=== PATIENT | male | born 1970 | race Caucasian/White ===

== ENCOUNTER 2022-02-04 19:29 | Inpatient (IN) ==
[2022-02-04] MEDS ORDERED: SODIUM CHLORIDE 0.9% 2,000 ML IV STA (19:45)
[2022-02-04 20:18] LABS: Basophils # 0.1 10*3/uL (0.0-0.2); Basophils % 0.9 % (0.0-0.8); Eosinophils % 0.2 % (0.00-10.9); Hematocrit 44.2 VOL% (42.0-52.0); Hemoglobin 15.4 GM/DL (14.0-18.0); Immature Granulocytes % 1.9 %; Lymphocytes # 0.5 10*3/uL (1.4-4.0); Lymphocytes % 9.3 % (21.2-54.2); Mean Corpuscular HGB Conc 34.8 GM/DL (32-36); Mean Corpuscular Volume 95.5 FL (87-102); Mean Platelet Volume 13.9 FL (9.6-12.0); Monocytes # 0.1 10*3/uL (0.11-0.8); Monocytes % 1.9 % (1.7-12.7); Neutrophils % 85.8 % (38.7-73.9); Platelet Count 43 T/CUMM (130-400); Red Blood Count 4.63 MC/CUMM (3.8-5.5); Red Cell Distribution Width 13.7 % (9.3-17.3); White Blood Count 5.3 T/CUMM (4-12)
[2022-02-04 20:35] LABS: Albumin 2.7 G/DL (3.4-5.0); Bilirubin,Total 1.7 MG/DL (0.20-1.00); Calcium 7.5 MG/DL (8.5-10.1); Osmolality,Calculated 267.1 MOS/KG (273-304); Potassium 3.9 MMOL/L (3.5-5.1); Total Protein 5.5 G/DL (6.4-8.2)
[2022-02-04 20:45] LABS: Band Neutrophils 12 % (0-10); Lymphocytes 6 % (20-55); Total Cells Counted 100
[2022-02-04 20:56] LABS: Platelet Estimate Decreased
[2022-02-04] MEDS ORDERED: SODIUM CHLORIDE 0.9% 1,000 ML IV STA (21:31)
[2022-02-04] MEDS ORDERED: PIPERACILLIN/TAZOBACTAM 3,375 MG in SODIUM CHLORIDE 0.9% 100 ML IV STA (21:32)
[2022-02-04 22:02] LABS: Bilirubin,Urine Small mg/dL (Negative); Blood, Urine Small mg/dL (Negative); Glucose,Urine (UA) Negative (Negative); Ketones,Urine Trace mg/dL (Negative); Nitrite,Urine Negative (Negative); Protein,Urine 100 mg/dL (Negative); Urine Appearance Slightly Cloudy (Clear); Urine Color Dark Yellow (Yellow); Urine pH 5.5 (4.5-8.0)
[2022-02-04 22:24] LABS: Barbiturates Screen,Urine Negative (Negative); Benzodiazepines Screen,Urine Negative (Negative); Cannabinoid Screen,Urine Negative (Negative); Opiate Screen,Urine Negative (Negative); Phencyclidine Screen,Urine Negative (Negative)
[2022-02-05] MEDS ORDERED: GLUCAGON 1 MG VIAL IM PRN (00:33)
[2022-02-05] MEDS ORDERED: ONDANSETRON 4 MG/2 ML VIAL IV PRN (00:41)
[2022-02-05] MEDS ORDERED: hydrALAZINE 20 MG/1 ML VIAL IV PRN (00:41)
[2022-02-05] MEDS ORDERED: DEXTROSE 10% 250 ML BAG IV PRN (00:56)
[2022-02-05] MEDS ORDERED: MAGNESIUM SULF RIDER 2 GM/50 ML PREMIX IV PRN (01:50)
[2022-02-05] MEDS ORDERED: MAGNESIUM SULF RIDER 4 GM/100 ML PREMIX IV PRN (01:50)
[2022-02-05] MEDS: SODIUM CHLORIDE 0.9% 1,000 ML IV SCH ×2 (02:08→18:01)
[2022-02-05 02:17] LABS: Basophils % 0.5 % (0.0-0.8); Hematocrit 43.5 VOL% (42.0-52.0); Hemoglobin 15.1 GM/DL (14.0-18.0); Immature Granulocytes % 0.9 %; Immature Granulocytes Absolute 0.05 #; Lymphocytes # 0.6 10*3/uL (1.4-4.0); Mean Corpuscular HGB Conc 34.7 GM/DL (32-36); Mean Corpuscular Volume 96.2 FL (87-102); Monocytes # 0.1 10*3/uL (0.11-0.8); Monocytes % 2.5 % (1.7-12.7); Neutrophils % 86.1 % (38.7-73.9); Platelet Count 45 T/CUMM (130-400); Red Blood Count 4.52 MC/CUMM (3.8-5.5); Red Cell Distribution Width 13.8 % (9.3-17.3); White Blood Count 5.5 T/CUMM (4-12)
[2022-02-05 02:53] LABS: Albumin 2.4 G/DL (3.4-5.0); Bilirubin,Total 1.9 MG/DL (0.20-1.00); Osmolality,Calculated 267.8 MOS/KG (273-304)
[2022-02-05 02:58] LABS: Cholesterol < 50 MG/DL (50-200); HDL Cholesterol < 10 MG/DL (40-60); Triglycerides 162 MG/DL (2-150); VLDL Cholesterol 32.4 MG/DL
[2022-02-05 03:11] LABS: Band Neutrophils 5 % (0-10); Lymphocytes 8 % (20-55); Platelet Estimate Decreased; Total Cells Counted 100
[2022-02-05] MEDS ORDERED: ENOXAPARIN 40 MG/0.4 ML SYRINGE SUBCUT SCH (09:00)
[2022-02-05] MEDS: PANTOPRAZOLE 40 MG TABLET PO SCH (09:13)
[2022-02-05] MEDS ORDERED: PHENOL 1.4% THROAT SPRAY 177 ML BOTTLE PO PRN (11:14)
[2022-02-05] MEDS: cefTRIAXone 1,000 MG in SODIUM CHLORIDE 0.9% 100 ML IV SCH (12:19)
[2022-02-05] MEDS: AZITHROMYCIN INJ 500 MG in SODIUM CHLORIDE 0.9% 250 ML IV SCH (12:59)
[2022-02-05] MEDS: BUTALBITAL/ACETAMIN/CAFFEINE 50-325-40 MG TABLET PO PRN ×2 (12:59→21:46)
[2022-02-05] MEDS: ALBUTEROL/IPRATROPIUM 3 ML NEB RESP TX SCH ×2 (13:46→19:47)
[2022-02-05] MEDS: SODIUM BICARBONATE 650 MG TABLET PO SCH ×2 (15:49→21:46)
[2022-02-05] MEDS ORDERED: LORazepam 1 MG TABLET PO PRN (20:45)
[2022-02-05] MEDS ORDERED: NICOTINE 14 MG/24 HR PATCH TRANSDERM PRN (20:45)
[2022-02-05 20:56] LABS: Arterial Base Excess iSTAT -7 MMOL/L (-2.5-2.5); Arterial Bicarbonate iSTAT 15.9 MMOL/L (20-26); Arterial O2 Saturation iSTAT 88 % (95-100); Arterial PCO2 iSTAT 27 MM HG (35-48); Arterial PO2 iSTAT 54 MM HG (80-95); Arterial Total CO2 iSTAT 17 MMO/L (23-27); Arterial pH iSTAT 7.384 (7.35-7.45)
[2022-02-05] MEDS ORDERED: LORazepam 1 MG TABLET PO SCH (21:00)
[2022-02-06] MEDS: ALBUTEROL/IPRATROPIUM 3 ML NEB RESP TX SCH ×3 (00:50→14:40)
[2022-02-06 06:06] LABS: Basophils % 0.3 % (0.0-0.8); Eosinophils # 0.1 10*3/uL (0.0-0.87); Eosinophils % 1.4 % (0.00-10.9); Hematocrit 39.2 VOL% (42.0-52.0); Hemoglobin 13.7 GM/DL (14.0-18.0); Immature Granulocytes % 0.6 %; Immature Granulocytes Absolute 0.04 #; Lymphocytes # 1.1 10*3/uL (1.4-4.0); Lymphocytes % 17.9 % (21.2-54.2); Mean Corpuscular HGB Conc 34.9 GM/DL (32-36); Mean Corpuscular Volume 96.6 FL (87-102); Mean Platelet Volume 13.6 FL (9.6-12.0); Monocytes # 0.3 10*3/uL (0.11-0.8); Monocytes % 5.4 % (1.7-12.7); Neutrophils % 74.4 % (38.7-73.9); Platelet Count 46 T/CUMM (130-400); Red Blood Count 4.06 MC/CUMM (3.8-5.5); Red Cell Distribution Width 14.2 % (9.3-17.3); White Blood Count 6.3 T/CUMM (4-12)
[2022-02-06 06:29] LABS: Albumin 2.1 G/DL (3.4-5.0); Calcium 7.2 MG/DL (8.5-10.1); Osmolality,Calculated 269.2 MOS/KG (273-304); Potassium 3.7 MMOL/L (3.5-5.1); Total Protein 4.6 G/DL (6.4-8.2)
[2022-02-06 06:52] LABS: Eosinophils 1 % (0-10); Lymphocytes 8 % (20-55); Platelet Estimate Decreased; Total Cells Counted 100
[2022-02-06] MEDS: PANTOPRAZOLE 40 MG TABLET PO SCH (08:35)
[2022-02-06] MEDS: SODIUM BICARBONATE 650 MG TABLET PO SCH ×2 (08:35→21:56)
[2022-02-06] MEDS: THIAMINE IV SCH (09:17)
[2022-02-06] MEDS: FOLIC ACID IV SCH (09:17)
[2022-02-06] MEDS: [UNRECOGNIZED DRUG - OTHER] IV SCH (09:17)
[2022-02-06] MEDS: MULTIVITAMIN IV SCH (09:17)
[2022-02-06] MEDS: cefTRIAXone 1,000 MG in SODIUM CHLORIDE 0.9% 100 ML IV SCH (12:53)
[2022-02-06] MEDS: AZITHROMYCIN INJ 500 MG in SODIUM CHLORIDE 0.9% 250 ML IV SCH (13:47)
[2022-02-06] MEDS ORDERED: LEVALBUTEROL 1.25 MG/3 ML NEB RESP TX PRN (14:24)
[2022-02-06] MEDS: DEXAMETHASONE 4 MG/1 ML VIAL IV SCH (14:49)
[2022-02-06] MEDS: SODIUM CHLORIDE 0.9% 1,000 ML IV SCH ×4 (14:50→21:57)
[2022-02-06] MEDS: LEVALBUTEROL 1.25 MG/3 ML NEB RESP TX SCH (18:55)
[2022-02-06] MEDS: ASCORBIC ACID 500 MG TABLET PO SCH (21:56)
[2022-02-07 05:15] LABS: Basophils % 0.4 % (0.0-0.8); Eosinophils % 0.2 % (0.00-10.9); Hematocrit 41.6 VOL% (42.0-52.0); Hemoglobin 13.5 GM/DL (14.0-18.0); Immature Granulocytes % 0.6 %; Immature Granulocytes Absolute 0.03 #; Lymphocytes # 0.9 10*3/uL (1.4-4.0); Lymphocytes % 18.8 % (21.2-54.2); Mean Corpuscular HGB Conc 32.5 GM/DL (32-36); Mean Corpuscular Volume 102.7 FL (87-102); Mean Platelet Volume 13.5 FL (9.6-12.0); Monocytes # 0.3 10*3/uL (0.11-0.8); Monocytes % 5.6 % (1.7-12.7); Neutrophils % 74.4 % (38.7-73.9); Platelet Count 50 T/CUMM (130-400); Red Blood Count 4.05 MC/CUMM (3.8-5.5); Red Cell Distribution Width 14.7 % (9.3-17.3)
[2022-02-07 05:52] LABS: Platelet Estimate Decreased
[2022-02-07 06:19] LABS: Albumin 2.4 G/DL (3.4-5.0); Bilirubin,Total 0.9 MG/DL (0.20-1.00); Calcium 7.9 MG/DL (8.5-10.1); Osmolality,Calculated 281.5 MOS/KG (273-304); Potassium 5.3 MMOL/L (3.5-5.1); Total Protein 5.9 G/DL (6.4-8.2)
[2022-02-07] MEDS: LEVALBUTEROL 1.25 MG/3 ML NEB RESP TX SCH ×4 (07:21→20:00)
[2022-02-07] MEDS: SODIUM CHLORIDE 0.9% 1,000 ML IV SCH ×8 (08:49→16:36)
[2022-02-07] MEDS ORDERED: DEXAMETHASONE 4 MG/1 ML VIAL IV SCH (09:00)
[2022-02-07] MEDS: ZINC GLUCONATE 50 MG TABLET PO SCH (09:41)
[2022-02-07] MEDS: PANTOPRAZOLE 40 MG TABLET PO SCH (09:41)
[2022-02-07] MEDS: SODIUM BICARBONATE 650 MG TABLET PO SCH ×2 (09:41→20:50)
[2022-02-07] MEDS: DEXAMETHASONE 4 MG/1 ML VIAL IV SCH (09:41)
[2022-02-07] MEDS: CHOLECALCIFEROL 1,000 UNIT TABLET PO SCH (09:41)
[2022-02-07] MEDS: ASCORBIC ACID 500 MG TABLET PO SCH ×2 (09:41→20:50)
[2022-02-07] MEDS: CETIRIZINE 10 MG TABLET PO SCH (09:41)
[2022-02-07] MEDS: MULTIVITAMIN IV SCH (13:15)
[2022-02-07] MEDS: FOLIC ACID IV SCH (13:15)
[2022-02-07] MEDS: THIAMINE IV SCH (13:15)
[2022-02-07] MEDS: [UNRECOGNIZED DRUG - OTHER] IV SCH (13:15)
[2022-02-07] MEDS: cefTRIAXone 1,000 MG in SODIUM CHLORIDE 0.9% 100 ML IV SCH (13:58)
[2022-02-07] MEDS: AZITHROMYCIN INJ 500 MG in SODIUM CHLORIDE 0.9% 250 ML IV SCH (15:17)
[2022-02-07] MEDS: LORazepam 1 MG TABLET PO PRN (21:00)
[2022-02-08] MEDS: LORazepam 1 MG TABLET PO PRN ×2 (00:55→20:50)
[2022-02-08] MEDS: SODIUM CHLORIDE 0.9% 1,000 ML IV SCH (00:55)
[2022-02-08] MEDS: LEVALBUTEROL 1.25 MG/3 ML NEB RESP TX SCH ×4 (01:18→19:39)
[2022-02-08 08:39] LABS: Basophils % 0.1 % (0.0-0.8); Eosinophils % 0.1 % (0.00-10.9); Hematocrit 35.4 VOL% (42.0-52.0); Immature Granulocytes % 0.8 %; Immature Granulocytes Absolute 0.09 #; Lymphocytes % 9.4 % (21.2-54.2); Mean Corpuscular HGB Conc 33.9 GM/DL (32-36); Mean Corpuscular Volume 97.5 FL (87-102); Mean Platelet Volume 12.9 FL (9.6-12.0); Monocytes # 0.9 10*3/uL (0.11-0.8); Monocytes % 8.3 % (1.7-12.7); Neutrophils % 81.3 % (38.7-73.9); Red Blood Count 3.63 MC/CUMM (3.8-5.5); Red Cell Distribution Width 14.7 % (9.3-17.3); White Blood Count 11.1 T/CUMM (4-12)
[2022-02-08 08:41] LABS: Platelet Count 94 T/CUMM (130-400)
[2022-02-08 08:57] LABS: Albumin 2.1 G/DL (3.4-5.0); Bilirubin,Total 0.5 MG/DL (0.20-1.00); Calcium 7.7 MG/DL (8.5-10.1); Osmolality,Calculated 289.7 MOS/KG (273-304); Potassium 3.5 MMOL/L (3.5-5.1); Total Protein 4.6 G/DL (6.4-8.2)
[2022-02-08] MEDS: DEXAMETHASONE 4 MG/1 ML VIAL IV SCH (09:45)
[2022-02-08] MEDS: PANTOPRAZOLE 40 MG TABLET PO SCH (09:46)
[2022-02-08] MEDS: CHOLECALCIFEROL 1,000 UNIT TABLET PO SCH (09:46)
[2022-02-08] MEDS: CETIRIZINE 10 MG TABLET PO SCH (09:46)
[2022-02-08] MEDS: ASCORBIC ACID 500 MG TABLET PO SCH ×2 (09:46→20:50)
[2022-02-08] MEDS: MULTIVITAMIN IV SCH (09:46)
[2022-02-08] MEDS: SODIUM BICARBONATE 650 MG TABLET PO SCH (09:46)
[2022-02-08] MEDS: THIAMINE IV SCH (09:46)
[2022-02-08] MEDS: [UNRECOGNIZED DRUG - OTHER] IV SCH (09:46)
[2022-02-08] MEDS: FOLIC ACID IV SCH (09:46)
[2022-02-08] MEDS: cefTRIAXone 1,000 MG in SODIUM CHLORIDE 0.9% 100 ML IV SCH (11:37)
[2022-02-08] MEDS: ZINC GLUCONATE 50 MG TABLET PO SCH (11:38)
[2022-02-08] MEDS: AZITHROMYCIN INJ 500 MG in SODIUM CHLORIDE 0.9% 250 ML IV SCH (13:28)
[2022-02-09] MEDS: LEVALBUTEROL 1.25 MG/3 ML NEB RESP TX SCH ×3 (00:16→13:00)
[2022-02-09] MEDS ORDERED: guaiFENesin 200 MG/10 ML UDCUP PO PRN (03:36)
[2022-02-09] MEDS: BUTALBITAL/ACETAMIN/CAFFEINE 50-325-40 MG TABLET PO PRN (04:05)
[2022-02-09] MEDS: LORazepam 1 MG TABLET PO PRN ×2 (04:05→09:41)
[2022-02-09 04:31] LABS: Basophils % 0.4 % (0.0-0.8); Eosinophils # 0.2 10*3/uL (0.0-0.87); Eosinophils % 2.1 % (0.00-10.9); Hemoglobin 11.7 GM/DL (14.0-18.0); Immature Granulocytes % 0.8 %; Immature Granulocytes Absolute 0.07 #; Lymphocytes # 1.7 10*3/uL (1.4-4.0); Lymphocytes % 20.2 % (21.2-54.2); Mean Corpuscular HGB Conc 33.4 GM/DL (32-36); Mean Corpuscular Volume 98.9 FL (87-102); Mean Platelet Volume 12.5 FL (9.6-12.0); Monocytes # 0.8 10*3/uL (0.11-0.8); Monocytes % 9.1 % (1.7-12.7); Neutrophils % 67.4 % (38.7-73.9); Platelet Count 128 T/CUMM (130-400); Red Blood Count 3.54 MC/CUMM (3.8-5.5); White Blood Count 8.4 T/CUMM (4-12)
[2022-02-09 04:51] LABS: Albumin 2.2 G/DL (3.4-5.0); Bilirubin,Total 0.5 MG/DL (0.20-1.00); Calcium 7.7 MG/DL (8.5-10.1); Osmolality,Calculated 291.4 MOS/KG (273-304); Potassium 3.2 MMOL/L (3.5-5.1); Total Protein 4.5 G/DL (6.4-8.2)
[2022-02-09] MEDS ORDERED: POTASSIUM CHLORIDE 20 MEQ TABLET PO ONE (07:46)
[2022-02-09] MEDS: DEXAMETHASONE 4 MG/1 ML VIAL IV SCH (09:27)
[2022-02-09] MEDS: THIAMINE IV SCH (09:28)
[2022-02-09] MEDS: MULTIVITAMIN IV SCH (09:28)
[2022-02-09] MEDS: [UNRECOGNIZED DRUG - OTHER] IV SCH (09:28)
[2022-02-09] MEDS: FOLIC ACID IV SCH (09:28)
[2022-02-09] MEDS: CHOLECALCIFEROL 1,000 UNIT TABLET PO SCH (09:31)
[2022-02-09] MEDS: PANTOPRAZOLE 40 MG TABLET PO SCH (09:31)
[2022-02-09] MEDS: ASCORBIC ACID 500 MG TABLET PO SCH (09:31)
[2022-02-09] MEDS: ZINC GLUCONATE 50 MG TABLET PO SCH (09:31)
[2022-02-09] MEDS: CETIRIZINE 10 MG TABLET PO SCH (09:31)
[2022-02-09] MEDS ORDERED: FUROSEMIDE 40 MG/4 ML VIAL IV ONE (11:48)
[2022-02-09] MEDS: AZITHROMYCIN INJ 500 MG in SODIUM CHLORIDE 0.9% 250 ML IV SCH (12:02)
[2022-02-09 12:41] VITALS: BP 132/101
[2022-02-09] MEDS: cefTRIAXone 1,000 MG in SODIUM CHLORIDE 0.9% 100 ML IV SCH (13:15)
== END 2022-02-09 15:20 | disposition home or self-care (01) | DRG 682 ==
LOC: N.ED 19:29 → N.TELEN 02-05 00:34 → SUATTDRO 02-05 00:34 → N.TELEN 02-05 01:34
PROVIDERS: ADMIT Internal Medicine; ATTEND Internal Medicine Geriatric Medicine